=== PATIENT | female | born 1955 | race Caucasian/White ===

== ENCOUNTER → 2018-02-27 | Outpatient (CLI) | payer BC ==
[~2018-02-27] MED LIST: ALPR.5; Abilify2 MG PO; Cyclobenzaprine5 MG PO; DOCU100 PO; ESTROGEN PATCH; HYDACE25S PR; HYDCOR2.5C PR; LAMO100 PO; LAMO50 PO; LATUDA40 MG PO; LITH300ER; METPRE4DP PO; Miralax17 GM PO; Norco 5-325 Ta1 EACH PO; PARO20; PARO25; PARO25 PO; Percocet 5-3251 EACH PO; Zithromax250 MG PO; Zofran Odt4 MG PO; Zofran Odt4 MG SL; Zofran4 MG PO
[2018-02-28 10:39] LABS: Candida species (DNA Probe) Negative (NEGATIVE); G. vaginalis (DNA Probe) Negative (NEGATIVE); T. vaginalis (DNA Probe) Negative (NEGATIVE)
== END | disposition home or self-care (01) ==
LOC: LAB SHORT 10:46 → LAB 10:46
PROVIDERS: Obstetrics & Gynecology
DX: Z01.411 Encounter for gynecological examination (general) (routine) with abnormal findings (principal); N76.0 Acute vaginitis
CPT/HCPCS: 87480; 87510; 87660

== ENCOUNTER 2018-03-20 09:08 | Day surgery (SDC) | payer BC ==
[~2018-03-20] VITALS: Ht 160 cm; Wt 71.5 kg
[~2018-03-20 09:08] MED LIST changes: +Abilify5 MG; +CHOL10002; +NAPR220; +Vitamin B Comple1 EA
== END 2018-03-20 11:25 | disposition home or self-care (01) ==
LOC: ORSCSDS 09:08
PROVIDERS: Surgery
PROC: 0DBN8ZX Excision of Sigmoid Colon, Via Natural or Artificial Opening Endoscopic, Diagnostic (ICD-10-PCS; principal; 2018-03-20 10:30)
PROC: 0DBP8ZX Excision of Rectum, Via Natural or Artificial Opening Endoscopic, Diagnostic (ICD-10-PCS; principal; 2018-03-20 10:30)
PROC: 0DBM8ZX Excision of Descending Colon, Via Natural or Artificial Opening Endoscopic, Diagnostic (ICD-10-PCS; principal; 2018-03-20 10:30)
PROC: 3E0H8GC Introduction of Other Therapeutic Substance into Lower GI, Via Natural or Artificial Opening Endoscopic (ICD-10-PCS; principal; 2018-03-20 10:30)
DX: Z12.11 Encounter for screening for malignant neoplasm of colon (principal); Z86.010 Personal history of colon polyps; K63.5 Polyp of colon; K62.1 Rectal polyp; D12.5 Benign neoplasm of sigmoid colon; E78.5 Hyperlipidemia, unspecified; M79.7 Fibromyalgia; F31.9 Bipolar disorder, unspecified; Z79.899 Other long term (current) drug therapy
CPT/HCPCS: 88305; J7120

== ENCOUNTER 2018-04-04 13:38 | Inpatient (IN) | payer BC ==
[~2018-04-04] VITALS: Ht 160 cm; Wt 72.6 kg
[~2018-04-04 13:38] MED LIST changes: -ALPR.5; +ALPR.5 PO; -Abilify5 MG; +Abilify5 MG PO; -CHOL10002; +CHOL10002 PO; -NAPR220; +NAPR220 PO; -PARO20; +PARO20 PO; -Vitamin B Comple1 EA; +Vitamin B Comple1 EA PO
[2018-04-09 09:14] LABS: Hematocrit 36.9 % (33.0-51.0); Mean Corpuscular HGB 31.7 pg (26.0-34.0); Mean Corpuscular HGB Conc 32.5 g/dL (31.5-36.5); Mean Corpuscular Volume 98 fL (80-100); Mean Platelet Volume 9.5 fL (9.1-12.4); Platelet Count 250 K/mm3 (150-400); RDW Standard Deviation 47.2 fL (35.1-46.3); Red Blood Cell Count 3.78 M/mm3 (3.80-5.20); White Blood Cell Count 8.84 K/mm3 (4.00-11.30)
[2018-04-09 10:23] LABS: Hematocrit 36.9 % (33.0-51.0); Hemoglobin 12.1 g/dL (11.5-16.0); Mean Corpuscular HGB 32.2 pg (26.0-34.0); Mean Corpuscular HGB Conc 32.8 g/dL (31.5-36.5); Mean Corpuscular Volume 98 fL (80-100); Mean Platelet Volume 10.1 fL (9.1-12.4); Platelet Count 260 K/mm3 (150-400); RDW Coefficient Variation 13.2 % (11.7-14.2); RDW Standard Deviation 46.6 fL (35.1-46.3); Red Blood Cell Count 3.76 M/mm3 (3.80-5.20); White Blood Cell Count 8.79 K/mm3 (4.00-11.30)
[2018-04-10 04:43] LABS: BASOPHILS ABSOLUTE AUTO 0.02 K/mm3 (0.00-0.23); BASOPHILS PERCENT AUTO 0 % (0-2); EOSINOPHILS ABSOLUTE AUTO 0.02 K/mm3 (0.00-0.68); EOSINOPHILS PERCENT AUTO 0 % (0-6); Hematocrit 33.2 % (33.0-51.0); Hemoglobin 10.8 g/dL (11.5-16.0); IMMATURE GRAN ABSOLUTE AUTO 0.06 K/mm3 (0.00-0.10); IMMATURE GRAN PERCENT AUTO 0 % (0-1); LYMPHOCYTES ABSOLUTE AUTO 1.61 K/mm3 (0.84-5.20); LYMPHOCYTES PERCENT AUTO 12 % (21-46); MONOCYTES ABSOLUTE AUTO 1.21 K/mm3 (0.16-1.47); MONOCYTES PERCENT AUTO 9 % (4-13); Mean Corpuscular HGB Conc 32.5 g/dL (31.5-36.5); Mean Corpuscular Volume 98 fL (80-100); Mean Platelet Volume 9.5 fL (9.1-12.4); NEUTROPHILS ABSOLUTE AUTO 11.13 K/mm3 (1.96-9.15); NEUTROPHILS PERCENT AUTO 79 % (41-73); Platelet Count 229 K/mm3 (150-400); Red Blood Cell Count 3.38 M/mm3 (3.80-5.20); White Blood Cell Count 14.05 K/mm3 (4.00-11.30)
[2018-04-10 05:13] LABS: Calcium, Blood 8.1 mg/dL (8.5-10.1); Potassium, Blood 4.4 mmol/L (3.5-5.5)
[2018-04-11 04:40] LABS: BASOPHILS ABSOLUTE AUTO 0.04 K/mm3 (0.00-0.23); BASOPHILS PERCENT AUTO 0 % (0-2); EOSINOPHILS ABSOLUTE AUTO 0.22 K/mm3 (0.00-0.68); EOSINOPHILS PERCENT AUTO 2 % (0-6); Hematocrit 31.9 % (33.0-51.0); Hemoglobin 10.2 g/dL (11.5-16.0); IMMATURE GRAN ABSOLUTE AUTO 0.04 K/mm3 (0.00-0.10); IMMATURE GRAN PERCENT AUTO 0 % (0-1); LYMPHOCYTES ABSOLUTE AUTO 2.47 K/mm3 (0.84-5.20); LYMPHOCYTES PERCENT AUTO 21 % (21-46); MONOCYTES ABSOLUTE AUTO 0.86 K/mm3 (0.16-1.47); MONOCYTES PERCENT AUTO 7 % (4-13); Mean Corpuscular Volume 100 fL (80-100); Mean Platelet Volume 9.7 fL (9.1-12.4); NEUTROPHILS ABSOLUTE AUTO 8.03 K/mm3 (1.96-9.15); NEUTROPHILS PERCENT AUTO 69 % (41-73); Platelet Count 217 K/mm3 (150-400); RDW Coefficient Variation 12.8 % (11.7-14.2); RDW Standard Deviation 47.4 fL (35.1-46.3); Red Blood Cell Count 3.19 M/mm3 (3.80-5.20); White Blood Cell Count 11.66 K/mm3 (4.00-11.30)
[2018-04-11 04:56] LABS: Anion Gap 8 mmol/L (6-16); Blood Urea Nitrogen 14 mg/dL (8-24); CO2, Blood 24 mmol/L (21-32); Calcium, Blood 8.3 mg/dL (8.5-10.1); Chloride, Blood 109 mmol/L (98-108); Creatinine, Blood 0.88 mg/dL (0.40-1.00); Glomerular Filtration Rate >60 (60-); Glucose, Blood 93 mg/dL (70-99); Magnesium, Blood 1.8 mg/dL (1.6-2.4); Phosphorus, Blood 2.3 mg/dL (2.5-4.9); Sodium, Blood 141 mmol/L (136-145)
[2018-04-12 05:05] LABS: BASOPHILS ABSOLUTE AUTO 0.05 K/mm3 (0.00-0.23); BASOPHILS PERCENT AUTO 1 % (0-2); EOSINOPHILS ABSOLUTE AUTO 0.36 K/mm3 (0.00-0.68); EOSINOPHILS PERCENT AUTO 4 % (0-6); Hemoglobin 9.9 g/dL (11.5-16.0); IMMATURE GRAN ABSOLUTE AUTO 0.04 K/mm3 (0.00-0.10); IMMATURE GRAN PERCENT AUTO 0 % (0-1); LYMPHOCYTES ABSOLUTE AUTO 2.03 K/mm3 (0.84-5.20); LYMPHOCYTES PERCENT AUTO 20 % (21-46); MONOCYTES ABSOLUTE AUTO 0.83 K/mm3 (0.16-1.47); MONOCYTES PERCENT AUTO 8 % (4-13); Mean Corpuscular HGB 31.9 pg (26.0-34.0); Mean Platelet Volume 9.8 fL (9.1-12.4); NEUTROPHILS ABSOLUTE AUTO 6.75 K/mm3 (1.96-9.15); NEUTROPHILS PERCENT AUTO 67 % (41-73); Platelet Count 211 K/mm3 (150-400); RDW Coefficient Variation 12.5 % (11.7-14.2); RDW Standard Deviation 44.5 fL (35.1-46.3); White Blood Cell Count 10.06 K/mm3 (4.00-11.30)
[2018-04-12 05:07] LABS: Mean Corpuscular Volume 97 fL (80-100)
[2018-04-12 05:16] LABS: Anion Gap 7 mmol/L (6-16); Blood Urea Nitrogen 12 mg/dL (8-24); Bun/Creatinine Ratio 13.6 (12.0-20.0); CO2, Blood 25 mmol/L (21-32); Calcium, Blood 8.2 mg/dL (8.5-10.1); Chloride, Blood 109 mmol/L (98-108); Creatinine, Blood 0.88 mg/dL (0.40-1.00); Glomerular Filtration Rate >60 (60-); Glucose, Blood 92 mg/dL (70-99); Magnesium, Blood 1.7 mg/dL (1.6-2.4); Phosphorus, Blood 2.2 mg/dL (2.5-4.9); Sodium, Blood 141 mmol/L (136-145)
[2018-04-13] MEDS ORDERED: ONDA4 PO (11:00)
[2018-04-13] MEDS ORDERED: OXYC5 PO (11:01)
== END 2018-04-13 11:45 | disposition home or self-care (01) | DRG 331 ==
LOC: SURS 04-09 07:10 → PRE IP 04-09 08:30 → SURS 04-09 12:23
PROVIDERS: Surgery
PROC: 0DTN0ZZ Resection of Sigmoid Colon, Open Approach (ICD-10-PCS; principal; 2018-04-09 08:30)
DX: K63.89 Other specified diseases of intestine (principal); K63.5 Polyp of colon; F31.9 Bipolar disorder, unspecified; M79.7 Fibromyalgia; K21.9 Gastro-esophageal reflux disease without esophagitis; E78.5 Hyperlipidemia, unspecified; Z87.891 Personal history of nicotine dependence
CPT/HCPCS: 36415; 80048; 83735; 84100; 85025; 85027; 88305; C1762; J0295; J1100; J1885; J2250; J2405; J2710; J3010; J7030; J7040; J7120

== ENCOUNTER 2019-01-07 12:01 | Inpatient (IN) | payer BC ==
[~2019-01-07] VITALS: Ht 160 cm; Wt 67.9 kg
[~2019-01-07 12:01] MED LIST changes: -CHOL10002 PO; +Lamictal150 MG PO; +ONDA4 PO; +OXYC5 PO
[2019-01-07 12:23] LABS: BASOPHILS ABSOLUTE AUTO 0.07 K/mm3 (0.00-0.23); BASOPHILS PERCENT AUTO 1 % (0-2); EOSINOPHILS ABSOLUTE AUTO 0.19 K/mm3 (0.00-0.68); EOSINOPHILS PERCENT AUTO 2 % (0-6); Hematocrit 44.3 % (33.0-51.0); Hemoglobin 14.4 g/dL (11.5-16.0); IMMATURE GRAN ABSOLUTE AUTO 0.03 K/mm3 (0.00-0.10); IMMATURE GRAN PERCENT AUTO 0 % (0-1); LYMPHOCYTES PERCENT AUTO 26 % (21-46); MONOCYTES ABSOLUTE AUTO 0.51 K/mm3 (0.16-1.47); MONOCYTES PERCENT AUTO 6 % (4-13); Mean Corpuscular HGB 31.6 pg (26.0-34.0); Mean Corpuscular HGB Conc 32.5 g/dL (31.5-36.5); Mean Corpuscular Volume 97 fL (80-100); Mean Platelet Volume 9.9 fL (9.1-12.4); NEUTROPHILS ABSOLUTE AUTO 5.68 K/mm3 (1.96-9.15); NEUTROPHILS PERCENT AUTO 65 % (41-73); Platelet Count 290 K/mm3 (150-400); RDW Coefficient Variation 13.2 % (11.7-14.2); RDW Standard Deviation 47.8 fL (35.1-46.3); Red Blood Cell Count 4.55 M/mm3 (3.80-5.20); White Blood Cell Count 8.78 K/mm3 (4.00-11.30)
[2019-01-07 12:45] LABS: Albumin, Blood 3.9 g/dL (3.4-5.0); Bilirubin, Total 0.6 mg/dL (0.1-1.0); Calcium, Blood 9.5 mg/dL (8.5-10.1); Globulin, Blood 3.9 g/dL (2.2-4.0); Potassium, Blood 4.2 mmol/L (3.5-5.5); Total Protein, Blood 7.8 g/dL (6.4-8.2)
[2019-01-07 12:51] LABS: Troponin I 0.124 ng/mL (0.000-0.040)
[2019-01-07] MEDS ORDERED: CHOL10002 PO (15:10)
[2019-01-07] MEDS ORDERED: DOCU100 PO (15:11)
[2019-01-07] MEDS ORDERED: OMEPRAZOLE MAGN20 MG PO (15:11)
[2019-01-07] MEDS ORDERED: VITAMIN E400 UNI1 PO (15:12)
--- NOTE | 2019-01-07 18:44 | NUR ---
SHIFT SUMMARY 1715 PT RECEIVED FROM ER. AMBULATED FROM STRETCHER TO BATHROOM AND BED. ALERT AND ORIENTED X3. VSS. LUNG SOUNDS CLEAR. SINUS BRICE RATE 55 PER EXECUTIVE SERVICES ADMINISTRATOR. SON AT BEDSIDE. WILL CONTINUE TO MONITOR.
[2019-01-08 00:31] LABS: Hemoglobin 13.2 g/dL (11.5-16.0); Mean Corpuscular HGB 32.8 pg (26.0-34.0); Platelet Count 248 K/mm3 (150-400); RDW Coefficient Variation 13.1 % (11.7-14.2); RDW Standard Deviation 48.3 fL (35.1-46.3); Red Blood Cell Count 4.02 M/mm3 (3.80-5.20); White Blood Cell Count 8.76 K/mm3 (4.00-11.30)
[2019-01-08 00:32] LABS: Mean Corpuscular Volume 100 fL (80-100)
[2019-01-08 00:50] LABS: Calcium, Blood 9.1 mg/dL (8.5-10.1); Potassium, Blood 4.3 mmol/L (3.5-5.5)
--- NOTE | 2019-01-08 02:26 | NUR ---
Assumed care of pt at approx 1900 from ALICIA Tucker. Pt with family at bedside at time of shift change. Pt VSS but bradycardic in mid 50's. Pt remains whit throughout shift. Pt denies chest pain and chest pressure. Pt states that she has r arm pain and r back pain after eating. Pt states pain is worsened with inspiration and movement. Pt otherwise denies pain or discomfort. Pt startles easily and requests that staff does not touch her. When approaching pt, speak to her first to make presense known. Pt alert and oriented, able to reposition self, RA, bed in lowest and locked position, calls appropriately, call light in reach. See shift assessment for detailed assessment. No changes in mentation this shift, pt remains independant but SBA for safety tonight. No events on tele. Will continue to monitor and update as appropriate.
--- NOTE | 2019-01-08 05:06 | NUR ---
Shift Summary No acute changes this shift. VSS. no events on tele. Pt remains bradycardic in mid 50's, asymptomatic. No c/o chest pain/pressure. Pt able to rest this night, pt states she is not getting very much sleep. Pt appear comfortable in bed, makes needs known, calls appropriately. Pt remains a&o, no changes in mentation, no changes to vascular assessment, denies feeling SOB. Leeroy continue to monitor and update as needed.
--- NOTE | 2019-01-08 07:50 | NUR ---
INITIAL ASSESSMENT: PT IS AWAKE SITTING UP ON THE EDGE OF THE BED. PT IS ALERT AND OX3. PT DENIES CHEST PAIN AT THIS TIME. HRR, SB IN THE 50S PER TELEMETRY. LS CTA, BIOX WNL ON RA. BT+. PPP, NO EDEMA PRESENT AT THIS TIME. VSS. PT EATING BREAKFAST. PT STATES THE PAIN GETS WORSE AFTER EATING AND WITH ACTIVITY. PT DENIES CARDIAC HX. PT DENIES OTHER NEEDS AT THIS TIME. CALL LIGHT IN REACH, WILL CONTINUE TO MONITOR.
--- NOTE | 2019-01-08 08:30 | NUR ---
DR. GOMEZ HAS BEEN TO SEE THE PATIENT, STRESS TEST ORDERED. NUC MED STATES PT OK TO EAT BREAKFAST, SHE WILL HAVE THE RESTING PORTION OF HER STRESS TEST AROUND 2:30 THIS AFTER NOON.
--- NOTE | 2019-01-08 12:00 | NUR ---
INITIAL ASSESSMENT UNCHAGED. PT REQUESTS TO TAKE GI COCKTAIL AFTER SHE EATS HER LUNCH. VSS. FAMILY AT BEDSIDE. PT REPORTS 2/10 CHEST PAIN THAT GETS WORSE WITH COUGH OR LAUGH. PT REFUSING PAIN MEDICATION AT THIS TIME. PT REQUESTING SOME ANTI-ANXIETY MEDICATION, SEE NEW ORDERS.
--- NOTE | 2019-01-08 15:30 | NUR ---
ASSESSMENT UNCHAGED. VSS. PT GIVEN ANTI-ANXIETY MEDICATION PER REQUEST. PT GIVEN GI COCKTAIL AFTER LUNCH PER REQUEST. PT DENIES OTHER NEEDS AT THIS TIME, CALL LIGHT IN REACH. WILL CONTINUE TO MONITOR.
--- NOTE | 2019-01-08 18:00 | NUR ---
PT HAS DONE WELL FOR MY SHIFT. PT IS ONLY HAVING EPIGASTRIC DISCOMFORT AFTER EATING MEALS. STRESS PORTION OF STRESS TEST SCHEDULED FOR TOMORROW AROUND NOON. NO ACUTE CHANGES THIS SHIFT, WILL REPORT TO ONCOMING RN.
--- NOTE | 2019-01-09 04:36 | NUR ---
Shift Summary No acute changes this shift. Pt slept for the majority of the night. Pt denies cp/pressure. pt states that all chest pain that she came in with has gone away since given the GI cocktail. Pt remains a&ox4. Unchanged since initial assessment. No events on tele. VSS. no sign of distress. Will continue to monitor and update as needed.
--- NOTE | 2019-01-09 16:54 | NUR ---
SHIFT SUMMARY PT HAS BEEN A&OX3 AND VERY PLEASANT ALL SHIFT. SHE HAS BEEN INDEPENDENTY UP WALKING AROUND THE FLOOR, AND FREE OF ANY CHEST PAIN THIS SHIFT. FIRST PORTION OF STRESS TEST HAS BEEN COMPLETED TODAY, RESTING PORTION TO COME TOMORROW AFTERNOON. TELE HAS BEEN SINUS BRICE 50-60'S. SHE HAD A SMALL BOUT UPPER ESOPHAGEAL IRRITATION AFTER EATING BREAKFAST, WHICH SUBSIDED WITHIN AN HOUR. PT ATE LUNCH SLOWLY AND SAID THAT SHE DIDNT HAVE ANY PAIN FOLLOWING LUNCH. VSS. CALL LIGHT IN REACH, BED IN LOWEST POSITION, NO-SLIP SOCKS ARE ON. REPORT HAS BEEN CALLED TO NURSE FOR TRANSFER TO ROOM 363.
--- NOTE | 2019-01-09 17:23 | NUR ---
PT TRANSFERED PT TRANAFERED FROM PCU AT 1700. PT IN STABLE CONDITION WITH VSS. PT DENIES CP. PT ORIENTED TO ROOM & GIVEN BEVERAGES. PT DENIES NEED AT THIS TIME. WILL CONTINUE TO MONITOR.
--- NOTE | 2019-01-10 06:03 | NUR ---
RN Summary: This ad copy writer assumed care of pt at 0230. Pt has been sleeping quietly without distress. Pt awakened this am for am meds. Pt states she has rested well. Pt is NPO for stress test this am. Patient states she is afraid to eat due to the pain she has and that she has lost weight the last 2 wks because she has not been eating. Pt is alert and oriented and up independantly in room. Pt continues to be on tele which shows sinus whit rate 50. No pain tonight just some burning in upper throat earlier. Call light in reach. No needs at this time.
--- NOTE | 2019-01-10 16:54 | NUR ---
SHIFT SUMMARY PT STAYING OVERNIGHT DUE TO ABNORMAL STRESS TEST. PT ANXIOUS ABOUT HAVING TO STAY. XANAX GIVEN PER EMAR. THIS RN SPOKE TO DR. LYON, METAL RIVETING MACHINE OPERATOR ABOUT CONSULT. ORDERED TO MAKE PT NPO AT MIDNIGHT. NO OTHER CHANGES IN ASSESSMENT AT THIS TIME. VSS. WILL CONTINUE TO MONITOR UNTIL TURNOVER IS COMPLETE.
--- NOTE | 2019-01-10 18:09 | NUR ---
PT ANXIOUS PT VERY ANXIOUS ABOUT SCHEDULED CARDIAC CATH IN THE AM. THIS RN SAT WITH PT & LISTENED TO CONCERNS. PT INFORMED MORE ABOUT THE PROCEDURE. 18G PLACED IN L AC FOR PROCEDURE. PT STATES SHE IS "JUST NERVOUS ABOUT TOMORROW." PT STATED SHE WILL FINISH DINNER & INFORM HER OF THE PLAN TOMORROW. PT REMINDED TO CALL IF SHE NEEDS ANYTHING OR HAS FURTHER QUESTIONS. WILL CONTINUE TO MONITOR.
--- NOTE | 2019-01-11 05:29 | NUR ---
SHIFT SUMMARY - NO ACUTE CHANGES TONIGHT. PT REPORTS ANXIETY ABOUT CARDIAC CATH PROCEDURE TODAY, HOWEVER DECREASED ANXIETY AFTER SPEAKING WITH FAMILY. NPO SINCE MIDNIGHT. PT DENIES ANY PAIN OR DISCOMFORT. TELEMETRY IN PLACE; SINUS BRICE @ 52 BPM. NO OTHER CHANGES TO REPORT. WILL CONT TO MONITOR AND PROVIDE CARE UNTIL PRESUMED BY ONCOMING RN.
--- NOTE | 2019-01-11 09:47 | NUR ---
PT UPDATED ON ANGIO TIME. PT & FAMILY UPDATED THAT ANGIO WILL TAKE PLACE AFTER 1200.
--- NOTE | 2019-01-11 11:56 | NUR ---
PATIENT SLEEPING AT THIS TIME, PATIENTS AT BEDSIDE
--- NOTE | 2019-01-11 12:13 | NUR ---
LATE ENTRY-TURNOVER REPORT GIVEN TO ALICIA OSUNA AT 1100. PT IN STABLE CONDITION WITH VSS. NO CHANGES IN ASSESSMENT. PT AWAITING ANGIO. ALICIA OSUNA DENIES FUTHER QUESTION.
--- NOTE | 2019-01-11 13:21 | NUR ---
1230 TO HEART CENTER REPORT GIVEN TO CAROLYN PETER RN IN PCU WHO WILL RECEIVE PATIENT POST PROCEDURE
--- NOTE | 2019-01-11 14:15 | NUR ---
PT TO ROOM FROM [facility]ART CENTER. STATES NO PAIN FROM HEART NOW. DOES HAVE PAIN FROM RT ARM AC TO TR BAND. HAS HAD SINCE PROCEDURE. H/C ALICIA LUNA STATES DR ARAGON HAS SEEN PT IN RECOVERY FOR SAME COMPLAINT. NO ORDERS STATES SMALL VESSELS, MAY CONTINUE PAIN FOR A WHILE. NO BLEEDING, HEMATOMA, SWELLING, BRUISING, NUMBNESS NOTED AT PROCEDURE SITE. ALICIA LUNA STATES DR TO PLACE ORDERS SHORTLY TO FINISH N/S AT 100/HR. FAMILY AT BEDSIDE. WILL CALL IF CONCERNS AT THIS TIME. BED IN LOW POSITION, CALL LITE IN REACH, CALLS APPROP
--- NOTE | 2019-01-11 15:34 | NUR ---
1500 DISCUSSED ARM PAIN WITH DI KIMBALL RN. SHE REVIEWED PT. REMOVED 2CC AIR FROM BAND. PAIN REMAINS.
--- NOTE | 2019-01-11 15:40 | NUR ---
CALLED DR JASON MELO PAIN IN ARM. OKAYED ORDERS FOR PAIN MED.
--- NOTE | 2019-01-11 17:06 | NUR ---
PT PLEASANT SINCE TRANSFER TO ROOM AFTER H/C INTERVENTION. DID TAKE 2CC AIR FROM TR BAND AFTER 1 HR TO ASSIST IN PAIN RELEIF. DID NOT HELP. MEDICATED. SOME HELP. PT TALKING WITH FAMILY. VSS. EDUCATED NOT TO USE RT ARM AT ALL. PT VERBALIZES UNDERSTANDING. BED IN LOW POSITION, CALL LITE IN REACH, CALLS APPROP
--- NOTE | 2019-01-11 18:52 | NUR ---
TOTAL 8 CC AIR FROM TR BAND AT THIS TIME. NEARLY DEFLATED. NO BLEEDING NOTED. PAIN BETWEEN AC AND TR BAND HAS DECREASED TO JUST UNCOMFORTABLE. LIGHT BRUISING UNDER BAND NOTED. NO BLEEDING, SWELLING, NUMBNESS NOTED. PT DENIES NUMBNESS TINGLING IN FINGERS. GOOD SATURATIONS ON FINGERS PER O2 PROBE. PT REEDUCATED ON IMPORTANCE OF NOT USING RT HAND. NO LIFTING, PUSHING, BENDING, ETC. PT VERBALIZED UNDERSTANDING. FAMILY AT BEDSIDE. BED IN LOW POSITION, CALL LITE IN REACH, CALLS APPROP
--- NOTE | 2019-01-11 23:25 | NUR ---
1125 TR BAND REMOVED. RW WRIST ANGIO ACCESS SITE PRESENTS WITH NO DRAINAGE, NO BRUISING, SITE CLEAR. CLEAR TEGADERM PLACED OVERSITE AND ARMBOARD IN PLACE. WILL CONTINUE TO MONITOR SITE.
[2019-01-12 03:55] LABS: BASOPHILS ABSOLUTE AUTO 0.05 K/mm3 (0.00-0.23); BASOPHILS PERCENT AUTO 1 % (0-2); EOSINOPHILS ABSOLUTE AUTO 0.26 K/mm3 (0.00-0.68); EOSINOPHILS PERCENT AUTO 3 % (0-6); Hematocrit 39.1 % (33.0-51.0); Hemoglobin 12.8 g/dL (11.5-16.0); IMMATURE GRAN ABSOLUTE AUTO 0.02 K/mm3 (0.00-0.10); IMMATURE GRAN PERCENT AUTO 0 % (0-1); LYMPHOCYTES ABSOLUTE AUTO 2.88 K/mm3 (0.84-5.20); LYMPHOCYTES PERCENT AUTO 31 % (21-46); MONOCYTES ABSOLUTE AUTO 0.81 K/mm3 (0.16-1.47); MONOCYTES PERCENT AUTO 9 % (4-13); Mean Corpuscular HGB 32.1 pg (26.0-34.0); Mean Corpuscular HGB Conc 32.7 g/dL (31.5-36.5); Mean Corpuscular Volume 98 fL (80-100); Mean Platelet Volume 10.5 fL (9.1-12.4); NEUTROPHILS ABSOLUTE AUTO 5.41 K/mm3 (1.96-9.15); NEUTROPHILS PERCENT AUTO 57 % (41-73); Platelet Count 247 K/mm3 (150-400); RDW Coefficient Variation 12.8 % (11.7-14.2); Red Blood Cell Count 3.99 M/mm3 (3.80-5.20); White Blood Cell Count 9.43 K/mm3 (4.00-11.30)
[2019-01-12 04:05] LABS: Bun/Creatinine Ratio 27.4 (12.0-20.0); Calcium, Blood 8.5 mg/dL (8.5-10.1); Creatinine, Blood 1.24 mg/dL (0.40-1.00); Potassium, Blood 4.2 mmol/L (3.5-5.5)
--- NOTE | 2019-01-12 07:50 | NUR ---
AM ASSESSMENT: Pt resting in bed with R wrist TR band site clean with intact tegaderm. No bleeding, swelling, oozing or hematoma noted. Pulses palp. Pt denies pain, CP, SOB or numbness/tingling. VSS. LS clear. HR reg, slightly bradycardic in the 50's. BT positive. Pt states that she wants to go home today. Anxious for discharge. Call light in reach. Denies needs.
--- NOTE | 2019-01-12 08:16 | NUR ---
END OF SHIFT SUMMARY ASSUMED CARE OF PT @1900. PT ALERT AND ORIENTED. HAS TR BAND ON RW WITH ARMBOARD IN PLACE R/T POST ANGIO, STENT PLACEMENT. TR BAND DEFLATED LAST REMAINING 2CC. TR BAND REMOVED AROUND 0000. SITE HAS REMAINED CLEAR OF NEW DRAINAGE, NONTENDER AND SOFT TO PALPATION. PT HAS KEPT ARMBOARD IN PLACE FOR TOTALITY OF SHIFT. PT HAS REQUIRED VERY LITTLE FROM STAFF. POST ASSESMENT, PT HAS BEEN RESTING IN BED. WITH NURSE ROUNDING AND VS, PT HAS DENIED NEED FOR PAIN MEDICATION. PT HAS CONTINUED TO DENY CP OR PRESSURE OR SOB. TROPONINS TRENDING DOWN. PT HAS HAD CALL LIGHT BY HER WITHIN REACH AND BED HAS BEEN IN LOWEST POSITION T/O SHIFT.
[2019-01-12] MEDS ORDERED: ASPI81CH PO (12:40)
[2019-01-12] MEDS ORDERED: Nicoderm Cq1 EAC1 TOP (12:42)
[2019-01-12] MEDS ORDERED: CLOP75 PO (12:42)
[2019-01-12] MEDS ORDERED: METO25 PO (12:43)
[2019-01-12] MEDS ORDERED: ATORVASTATIN CA40 MG PO (12:44)
--- NOTE | 2019-01-12 13:35 | NUR ---
DISCHARGE: Pt given verbal and written discharge instructions. Denies questions. Verbalzied understanding. IV discontinued, Cath intact. Rx were called to [facility] on [address]. Pt left via WC. Stable at time of discharge.
== END 2019-01-12 13:45 | disposition home or self-care (01) | DRG 247 ==
LOC: ER 12:01 → PCU 12:02 → MEDS 12:02 → PCU 17:40 → MEDS 01-09 17:06 → ENPENDDIS 01-11 09:13 → PCU 01-11 12:43
PROVIDERS: Internal Medicine; Internal Medicine Cardiovascular Disease; ADMIT Internal Medicine
PROC: 4A023N7 Measurement of Cardiac Sampling and Pressure, Left Heart, Percutaneous Approach (ICD-10-PCS; principal; 2019-01-12)
PROC: 027035Z Dilation of Coronary Artery, One Artery with Two Drug-eluting Intraluminal Devices, Percutaneous Approach (ICD-10-PCS; 2019-01-12)
PROC: B210YZZ Fluoroscopy of Single Coronary Artery using Other Contrast (ICD-10-PCS; 2019-01-12)
DX: I21.4 Non-ST elevation (NSTEMI) myocardial infarction (principal); F17.210 Nicotine dependence, cigarettes, uncomplicated; R79.89 Other specified abnormal findings of blood chemistry; K21.0 Gastro-esophageal reflux disease with esophagitis; I25.10 Atherosclerotic heart disease of native coronary artery without angina pectoris
CPT/HCPCS: 36415; 71046; 78452; 80048; 80053; 83880; 84484; 85025; 85027; 85347; 93005; 93010; 93017; 93454; 96372; 96374; 96376; 99152; 99153; 99285-25; A9500; C1725; C1769; C1874; C1887; C1894; C9113; C9600; G0378; J0706; J1644; J1650; J2250; J2785; J3010; J7030; Q9967

== ENCOUNTER 2019-01-26 11:16 | Emergency (ER) | payer BC ==
[~2019-01-26] VITALS: Ht 162.6 cm; Wt 68.0 kg
[~2019-01-26 11:16] MED LIST changes: +ASPI81CH PO; +ATORVASTATIN CA40 MG PO; +CHOL10002 PO; +CLOP75 PO; +METO25 PO; +Nicoderm Cq1 EAC1 TOP; +OMEPRAZOLE MAGN20 MG PO; +VITAMIN E400 UNI1 PO
== END 2019-01-26 11:55 | disposition home or self-care (01) ==
LOC: ER 11:16
DX: S80.11XA Contusion of right lower leg, initial encounter (principal); W18.30XA Fall on same level, unspecified, initial encounter; Z88.5 Allergy status to narcotic agent; Z79.899 Other long term (current) drug therapy; Z79.82 Long term (current) use of aspirin; F31.9 Bipolar disorder, unspecified; F17.200 Nicotine dependence, unspecified, uncomplicated
CPT/HCPCS: 73590; 99283-25

== ENCOUNTER → 2021-06-23 | Outpatient (CLI) | payer OTHER ==
[2021-06-23 19:55] LABS: Creatinine Urine 51.6 mg/dL (27.00-270.00); Microalbumin, Urine Quant. 14.1 mg/L (0.000-20.000)
== END | disposition home or self-care (01) ==
LOC: LAB SHORT 16:10 → LAB 16:10 → LAB FUT 06-16 14:00
PROVIDERS: Internal Medicine Nephrology
DX: N18.30 Chronic kidney disease, stage 3 unspecified (principal); D63.1 Anemia in chronic kidney disease; N25.81 Secondary hyperparathyroidism of renal origin; E55.9 Vitamin D deficiency, unspecified; E78.00 Pure hypercholesterolemia, unspecified; G60.9 Hereditary and idiopathic neuropathy, unspecified; R76.9 Abnormal immunological finding in serum, unspecified; R94.5 Abnormal results of liver function studies; R94.6 Abnormal results of thyroid function studies
CPT/HCPCS: 81050; 82043; 82570; 84156

== ENCOUNTER 2022-04-26 07:10 | Day surgery (SDC) | payer OTHER ==
[~2022-04-26] VITALS: Ht 162.6 cm; Wt 71.1 kg
[~2022-04-26 07:10] MED LIST changes: +ABILIFY MYCITE10 M2 PO
--- NOTE | 2022-04-26 07:48 | NUR ---
Ambulatory in Day Surgery History, Chart, Medications and Allergies reviewed before start of procedure. Pre-Op teaching done. Pt verbalizes understanding. Patient States Post-Procedure ride home has been arranged with Son.
--- NOTE | 2022-04-26 07:50 | NUR ---
04/26/22 0750 Mary Farah HISTORY, CHART, MEDICATIONS AND ALLERGIES REVIEWED BEFORE START OF PROCEDURE. PATIENT CONFIRMS NPO STATUS AND AGREES WITH SCHEDULED PROCEDURE. 3-LEAD EKG REVIEWED WITH PHYSICIAN PRIOR TO START OF PROCEDURE. MONITOR INTACT WITH CONTINUOUS PULSE OXIMETRY,CAPNOGRAPHY, 3-LEAD EKG, INTERMITTENT BP. SUPPLEMENTAL O2 TO BE TITRATED THROUGHOUT PROCEDURE TO MAINTAIN O2 SATURATION ABOVE 90%. PATIENT DETERMINED TO BE ASA APPROPRIATE FOR PROPOFOL SEDATION PRIOR TO START OF PROCEDURE BY DR. OH.
--- NOTE | 2022-04-26 09:08 | NUR ---
Patient up to Ambulate independently. Gait steady. Discharge instructions reviewed with patient. Patient verbalizes understanding. Copy given to patient to take home. Discharged via wheelchair to private car for ride home WITH SON
== END 2022-04-26 09:12 | disposition home or self-care (01) ==
LOC: ORSCMMR 07:10 → ORD 08:00 → ORSCMMR 08:30
PROVIDERS: Surgery
PROC: 0DJD8ZZ Inspection of Lower Intestinal Tract, Via Natural or Artificial Opening Endoscopic (ICD-10-PCS; principal; 2022-04-26 08:30)
DX: R19.5 Other fecal abnormalities (principal); K57.30 Diverticulosis of large intestine without perforation or abscess without bleeding; K64.8 Other hemorrhoids; Z86.010 Personal history of colon polyps; F31.9 Bipolar disorder, unspecified; K21.9 Gastro-esophageal reflux disease without esophagitis; Z79.899 Other long term (current) drug therapy
CPT/HCPCS: J2250; J2704; J7120

== ENCOUNTER → 2022-10-04 | Outpatient (CLI) | payer OTHER | END | disposition home or self-care (01) | LOC: LAB 12:17 → LAB SHORT 12:17 | DX: R35.0 Frequency of micturition (principal) | CPT/HCPCS: 87077; 87086; 87186 ==

== ENCOUNTER 2024-09-04 15:22 | Emergency (ER) | payer OTHER ==
[~2024-09-04] VITALS: Ht 162.6 cm; Wt 77.1 kg
[2024-09-04 15:43] VITALS: BP 142/99
[2024-09-04 15:50] LABS: BASOPHILS ABSOLUTE AUTO 0.08 K/mm3 (0.00-0.23); BASOPHILS PERCENT AUTO 1 % (0-2); EOSINOPHILS ABSOLUTE AUTO 0.28 K/mm3 (0.00-0.68); EOSINOPHILS PERCENT AUTO 3 % (0-6); Hematocrit 39.1 % (33.0-51.0); Hemoglobin 12.8 g/dL (11.5-16.0); IMMATURE GRAN ABSOLUTE AUTO 0.03 K/mm3 (0.00-0.10); IMMATURE GRAN PERCENT AUTO 0 % (0-1); LYMPHOCYTES ABSOLUTE AUTO 3.27 K/mm3 (0.84-5.20); LYMPHOCYTES PERCENT AUTO 35 % (21-46); MONOCYTES ABSOLUTE AUTO 0.68 K/mm3 (0.16-1.47); MONOCYTES PERCENT AUTO 7 % (4-13); Mean Corpuscular HGB 32.5 pg (26.0-34.0); Mean Corpuscular HGB Conc 32.7 g/dL (31.5-36.5); Mean Corpuscular Volume 99 fL (80-100); Mean Platelet Volume 9.7 fL (9.1-12.4); NEUTROPHILS ABSOLUTE AUTO 4.99 K/mm3 (1.96-9.15); NEUTROPHILS PERCENT AUTO 54 % (41-73); Platelet Count 280 K/mm3 (150-400); RDW Coefficient Variation 12.3 % (11.7-14.2); RDW Standard Deviation 45.2 fL (35.1-46.3); Red Blood Cell Count 3.94 M/mm3 (3.80-5.20); White Blood Cell Count 9.33 K/mm3 (4.00-11.30)
[2024-09-04 16:10] LABS: Albumin, Blood 3.8 g/dL (3.4-5.0); Bilirubin, Total 0.4 mg/dL (0.1-1.0); Bun/Creatinine Ratio 16.4 (12.0-20.0); Calcium, Blood 9.8 mg/dL (8.5-10.1); Creatinine, Blood 1.4 mg/dL (0.40-1.00); Globulin, Blood 3.9 g/dL (2.2-4.0); Potassium, Blood 4.4 mmol/L (3.5-5.5); Total Protein, Blood 7.7 g/dL (6.4-8.2)
[2024-09-04] MEDS ORDERED: OxyCODONE 5 mg/Acetamin 325 mg TABLET PO ONE (17:25)
[2024-09-04] MEDS ORDERED: OXYC5 PO (17:26)
== END 2024-09-04 17:54 | disposition left against medical advice (07) ==
LOC: ER 15:22
PROVIDERS: Physician Assistant
DX: M25.512 Pain in left shoulder (principal); I25.2 Old myocardial infarction
CPT/HCPCS: 71046; 80053; 84484; 85025; 93005; 93010; 99282-25; A9270